=== PATIENT | female | born 1950 | race African-American/Black ===

== ENCOUNTER 2017-04-19 22:49 | Emergency (ER) | payer MEDICARE ==
[2017-04-19 23:44] LABS: Hematocrit 32.5 % (36.0-47.0); Neutrophil 68 % (42-75); Red Blood Cell (RBC) Count 3.44 mill/uL (4.20-5.40); White Blood Cell (WBC) Count 4.9 thou/uL (4.8-10.8)
--- NOTE | 2017-04-19 23:47 | RAD ---
AP VIEW OF THE CHEST: 04/19/17 INDICATION: Difficulty breathing. COMPARISON: Prior exam dated 04/12/17. FINDINGS: There is stable cardiomegaly with mild pulmonary vascular congestion. Areas of scarring and subsegme ntal atelectasis is similar appearing. No confluent air space opacity or pleural effusion is evident . No acute osseous abnormality is evident. IMPRESSION: Stable examination of the chest. There is persistent cardiomegaly with pulmonary vascular congestion . POS: [facility]
[2017-04-19 23:55] LABS: ALT (SGPT) 12 U/L (8-55); AST (SGOT) 31 U/L (5-34); Alkaline Phosphatase 82 U/L (40-150); Anion Gap 13 mmol/L (10-20); BUN (Urea Nitrogen) 43 mg/dL (9.8-20.1); Bilirubin, Total 3.1 mg/dL (0.2-1.2); Calc. Creatinine Clearance 0 mL/min (70-130); Carbon Dioxide 18 mmol/L (23-31); Chloride 105 mmol/L (98-107); Estimated GFR-MDRD 20; Magnesium 1.6 mg/dL (1.6-2.6); Protein, Total 7.1 g/dL (6.0-8.3)
[2017-04-19 23:57] LABS: Troponin I Less than 0.010 ng/mL (< 0.028)
[2017-04-20] MEDS ORDERED: Furosemide 40 MG/4 ML VIAL ONE ×2 (01:24→02:09)
== END 2017-04-20 02:18 | disposition home or self-care (01) ==
LOC: ERS 22:49
DX: I13.0 Hypertensive heart and chronic kidney disease with heart failure and stage 1 through stage 4 chronic kidney disease, or unspecified chronic kidney disease (principal); E11.22 Type 2 diabetes mellitus with diabetic chronic kidney disease; N18.9 Chronic kidney disease, unspecified; E78.5 Hyperlipidemia, unspecified; I50.9 Heart failure, unspecified; I25.2 Old myocardial infarction; Z87.891 Personal history of nicotine dependence; Z79.82 Long term (current) use of aspirin; Z79.4 Long term (current) use of insulin; Z79.899 Other long term (current) drug therapy
CPT/HCPCS: 36415; 71010; 80053; 82553; 83735; 83880; 84484; 85025; 85379; 93005; 96374; J1940

== ENCOUNTER 2017-05-14 16:58 | Emergency (ER) | payer MEDICARE ==
--- NOTE | 2017-05-14 19:17 | RAD ---
RIGHT KNEE FOUR VIEWS: 05/14/17 HISTORY: Knee pain and swelling. FINDINGS/IMPRESSION: Mild degenerative changes are present. No fracture, dislocation or bony destruction is identified. V ascular calcifications, surgical clips, and soft tissue calcifications are also noted. POS: [facility]
--- NOTE | 2017-05-14 21:25 | ULT ---
BILATERAL LOWER EXTREMITY VENOUS DOPPLER ULTRASOUND: 05/14/17 HISTORY: Bilateral lower extremity edema and pain. TECHNIQUE: Candelario scale ultrasound with color flow and spectral doppler imaging of the deep venous systems of the lower extremity is performed bilaterally. FINDINGS: Exam is limited due to patient's body habitus. There is good flow, compression, and augmentation noted in the common femoral, femoral, deep femoral , popliteal, posterior tibial and greater saphenous veins on either side. IMPRESSION: No evidence of DVT in either lower extremity. POS: [facility]
== END 2017-05-14 20:03 | disposition home or self-care (01) ==
LOC: ERS 16:58
DX: R60.0 Localized edema (principal); I11.0 Hypertensive heart disease with heart failure; I50.9 Heart failure, unspecified; N28.9 Disorder of kidney and ureter, unspecified; E11.9 Type 2 diabetes mellitus without complications; Z98.890 Other specified postprocedural states; Z87.891 Personal history of nicotine dependence; Z79.899 Other long term (current) drug therapy
CPT/HCPCS: 93970; 94760

== ENCOUNTER 2017-05-19 10:38 | Inpatient (IN) | payer MEDICARE ==
[2017-05-19 11:17] LABS: Hematocrit 32.7 % (36.0-47.0); Mean Platelet Volume 8.1 fL (7.4-10.4); Red Blood Cell (RBC) Count 3.44 mill/uL (4.20-5.40); White Blood Cell (WBC) Count 4.6 thou/uL (4.8-10.8)
[2017-05-19 11:35] LABS: ALT (SGPT) 9 U/L (8-55); AST (SGOT) 24 U/L (5-34); Alkaline Phosphatase 83 U/L (40-150); Anion Gap 12 mmol/L (10-20); BUN (Urea Nitrogen) 30 mg/dL (9.8-20.1); Bilirubin, Total 4.9 mg/dL (0.2-1.2); Calc. Creatinine Clearance 0 mL/min (70-130); Carbon Dioxide 27 mmol/L (23-31); Chloride 85 mmol/L (98-107); Estimated GFR-MDRD 28; Globulin 4.1 g/dL (2.4-3.5); Magnesium 1.6 mg/dL (1.6-2.6); Protein, Total 6.9 g/dL (6.0-8.3)
[2017-05-19 11:39] LABS: Troponin I Less than 0.010 ng/mL (< 0.028)
[2017-05-19 11:42] LABS: Neutrophil 71 % (42-75)
--- NOTE | 2017-05-19 11:46 | RAD ---
CHEST 1 VIEW: HISTORY: Dyspnea. Shortness of breath. COMPARISON: Chest 1 view dated 04/19/17. FINDINGS: Linear opacities in both lung bases. Mildly worsened from the comparison examination suggesting valery ma. No pneumothorax. Heart size is enlarged. IMPRESSION: Worsening interstitial opacities suggesting edema. POS: [facility]
[2017-05-19] MEDS ORDERED: Morphine 2 MG/ML SYRINGE ONE (12:15)
[2017-05-19] MEDS ORDERED: Ondansetron HCl/PF 4 MG/2 ML Vial ONE (12:15)
--- NOTE | 2017-05-19 12:51 | CT ---
CHEST CT NONCONTRAST: INDICATION: Dyspnea. COMPARISON: 11/02/15. FINDINGS: There is diffuse body wall edema as well as bilateral mild pleural fluid, and partially imaged ascit es compatible with a diffuse third spacing of fluid. Recommend clinical correlation in this regard. There is diffuse interstitial opacification as well as subtle areas of ground-glass opacity involv ing each lung, which favor edema in light of the concomitant findings. No pneumothorax. The region al soft tissues including vasculature and lymph nodes are limited in assessment by the noncontrast t echnique. There is extensive vascular disease and evidence of prior sternotomy and coronary artery stent placement. There is scattered osseous degenerative change. IMPRESSION: Findings most consistent with diffuse third spacing of fluid/anasarca with associated pulmonary nnamdi a. The possibility of underlying pneumonitis is not excluded. There are superimposed linear densit ies with subpleural nodularity which may be on the basis of atelectasis. Given component of nodular ity, recommend a followup CT thorax on a short-term basis subsequent to resolution of acute symptoms and completion of treatment regimen to confirm resolution of imaging findings. POS: [facility]
--- NOTE | 2017-05-19 12:59 | RAD ---
RIGHT FEMUR 2 VIEW SERIES: INDICATION: Pain. FINDINGS: The right hip joint is not reliably assessed on the basis of this exam. Otherwise, there is no acut e fracture of the right femur evident. Diffuse vascular calcifications are present. There are meta llic clips of the regional soft tissues. IMPRESSION: 1. Suboptimal visualization of right hip. Recommend dedicated right hip views for further assessme nt. 2. Otherwise, no displaced fracture of the right femur identified. POS: [facility]
--- NOTE | 2017-05-19 13:00 | RAD ---
RIGHT TIBIA FIBULA 2 VIEWS: History Pain. COMPARISON: None. FINDINGS: There are diffuse phleboliths throughout the lower extremity. No acute fracture or malalignment is appreciated. Small osteophyte formation on the iliotibial plateau. IMPRESSION: Extensive calcifications throughout the soft tissues to suggest phlebolith formation. POS: [facility]
[2017-05-19] MEDS ORDERED: Furosemide 20 MG/2 ML VIAL ONE (13:09)
[2017-05-19] MEDS ORDERED: Sodium Chloride 0.65% Nasal 44 ML BOT EA NARE PRN (14:59)
[2017-05-19] MEDS ORDERED: Eucerin (Mineral Oil/Petrolatum,White) 30 gm Jar TOP PRN (14:59)
[2017-05-19] MEDS ORDERED: Ondansetron HCl/PF 4 MG/2 ML Vial IVP PRN (14:59)
[2017-05-19] MEDS ORDERED: Senokot 8.6 MG TAB PO PRN (14:59)
[2017-05-19] MEDS ORDERED: Mag-Al 1200 mg/1200 mg/30 ML UDCUP PO PRN (14:59)
[2017-05-19] MEDS ORDERED: Acetaminophen 325 MG TAB PO PRN (14:59)
[2017-05-19] MEDS ORDERED: Dextrose 50% Abboject 50 ML SYRINGE SLOW IVP PRN (14:59)
[2017-05-19] MEDS ORDERED: Milk Of Magnesia 30 ML UDCUP PO PRN (14:59)
[2017-05-19] MEDS ORDERED: HumaLOG 300 UNITS/3 ML VIAL SC PRN (14:59)
[2017-05-19] MEDS ORDERED: Diabetic Tussin 200 MG/10 ML UDCUP PO PRN (14:59)
[2017-05-19] MEDS ORDERED: Artificial Tears 18 DROP/0.9 ML EA EYE PRN (14:59)
[2017-05-19] MEDS ORDERED: Loperamide HCl 2 MG CAP PO PRN (14:59)
[2017-05-19] MEDS ORDERED: Chloraseptic Spray 180 ml Bottle PO PRN (14:59)
[2017-05-19] MEDS ORDERED: hydrALAZINE 20 MG/ML VIAL SLOW IVP PRN (14:59)
[2017-05-19] MEDS ORDERED: Ondansetron ODT 4 MG TAB PO PRN (14:59)
[2017-05-19] MEDS ORDERED: Dextrose 5% in Water 1,000 ML IV PRN (14:59)
[2017-05-19] MEDS ORDERED: Loratadine 10 MG TAB PO PRN (14:59)
--- NOTE | 2017-05-19 14:59 | HP ---
PRIMARY CARE PHYSICIAN: Jessika Clay M.D. REASON FOR ADMISSION: Acute on chronic systolic and diastolic congestive heart failure exacerbation . HISTORY OF PRESENT ILLNESS: A 67-year-old -[place] female with a history of chronic systoli c heart failure. Based on last echocardiography in 09/2016, her EF is 15%-20% along with moderate t o severe tricuspid regurgitation and pulmonary hypertension as well as other medical issues includin g chronic kidney disease stage 4, diabetes type 2, dyslipidemia, who was brought to emergency room f or increasing edema and shortness of breath. This patient was recently hospitalized in our hospital in 04/11/2017 and she was discharged to [facility] on 04/15/2017. During that admission, Cardiology and Nephrology was following. This patient has renal insufficiency as well as congestive heart failure. During that admission, zee call did not want to go for dialysis and this time also she does not want to go for dialysis or not . She has severe cardiomyopathy and increasing lower extremity edema. At group home, she stayed for a week or two and after that patient was continued to refuse for dean lysis and her edema was getting worse. At that time, Dr. Rios recommended hospice and patient accep [facility] and since then patient was on hospice care. Patient's daughter, who is main caregiver for her. She is overwhelmed taking care of the patient. The patient's daughter cannot help her out because she cannot lift her because of patient's morbid o besity and she reports that hospice team was only coming once or twice a week and they were not help ing significantly. Patient was feeling more and more weak, more and more fluid overload status and that is why daughter called paramedics and patient came to emergency room for evaluation. Patient did not have any fever or urinary tract infection symptoms. She mostly spends time in recli ner or bed. She is only able to walk few steps and that is very slowly. She is hurting all over he r body with movement. Patient has not seen any doctor since her discharge from group home. Patient's daughter is present at bedside who provided most of the history and she also want to shawn nue DNR status while in hospital. She is interested in placing her mother in the hospital for aggre ssive diuresis and subsequently she wanted to go back to hospice care under placement so she can get time-off. REVIEW OF SYSTEMS: The following complete review of systems was negative, unless otherwise mentione d in the HPI or below: Constitutional: Weight loss or gain, ability to conduct usual activities. Skin: Rash, itching. Eyes: Double vision, pain. ENT/Mouth: Nose bleeding, neck stiffness, pain, tenderness. Cardiovascular: Palpitations, dyspnea on exertion, orthopnea. Respiratory: Shortness of breath, wheezing, cough, hemoptysis, fever or night sweats. Gastrointestinal: Poor appetite, abdominal pain, heartburn, nausea, vomiting, constipation, or diar marcus. Genitourinary: Urgency, frequency, dysuria, nocturia. Musculoskeletal: Pain, swelling. Neurologic/Psychiatric: Anxiety, depression. Allergy/Immunologic: Skin rash, bleeding tendency. Please see my HPI for pertinent positive and negative. All other review of systems reviewed and neg ative except as mentioned in the HPI. PAST MEDICAL HISTORY: Chronic systolic and diastolic heart failure with EF 15%-20%, pulmonary hyper tension, chronic kidney disease stage 3-4, history of CVA, history of chronic anticoagulation with X arelto, but now no longer on Xarelto, hypertension, dyslipidemia, history of [place], chronic lymphedema with superficial ulceration requiring wound care, diabetes type 2, morbid obesity, and gastroesophag eal reflux disease. PAST SURGICAL HISTORY: CABG x5 in 1997 and left knee surgery. PAST PSYCHIATRIC HISTORY: Reviewed and negative. FAMILY HISTORY: Positive for coronary artery disease among several family members. ALLERGIES: PENICILLIN. SOCIAL HISTORY: Patient currently lives at home with home hospice. Patient's daughter is caregiver . No history of tobacco, alcohol or illicit drug abuse. She quit smoking more than 10 years ago. Currently, the patient is mostly bedbound or wheelchair bound status. CURRENT HOME MEDICATIONS: At this point, daughter did not bring all her medications, but based on o ur previous hospitalization, patient is on Coreg 12.5 mg twice daily, Lasix 20 mg daily, tramadol 50 mg as needed, hydralazine 10 mg daily. Complete medication list is not done because they do not kn ow the name of medication. EMERGENCY ROOM COURSE: Patient is given Lasix 20 mg, morphine 2 mg, and Zofran 4 mg. PHYSICAL EXAMINATION: VITAL SIGNS: On arrival, blood pressure 103/59, pulse 66, respiratory rate 18, temperature 97.7, sa turation 94% on room air, and weight 122.4 kilograms. GENERAL: Patient is currently alert, awake, chronically ill, no acute distress. HEAD: Normocephalic, atraumatic. EYES: Pupils round and reactive to light. Extraocular muscle intact. ENT: Oropharynx within normal limits. Moist mucous membranes. No oral lesions. No pharyngeal yvonne thema, no exudate. NECK: Elevated JVD, no thyromegaly, no carotid bruits. No meningeal signs of irritation. LUNGS: Coarse breath sounds. Air entry reduced basally. CARDIAC: S1 and S2 regular. No murmur elicited, though morbid obesity limiting examination. ABDOMEN: Morbid obesity limiting examination. No peritoneal sign, no guarding, no rigidity, no yudelka ound. Hepatojugular reflux present. BACK: Examination unremarkable, no CVA tenderness. EXTREMITIES: Upper extremity passive movements of all joints are normal. Lower extremity, patient does have venous ulcer on the left lower extremity. Patient does have bilateral +3 pitting edema. Good distal pulsation. NEUROLOGIC: Grossly nonfocal examination. Patient is moving all four limbs. Speech normal. SKIN: No skin rash. HEMATOLOGICAL SYSTEM: No lymphadenopathy. PSYCHIATRIC: Flat affect. IMAGING AND SIGNIFICANT LABORATORY DATA: 1. CT chest showing diffuse third spacing of fluid, anasarca associated with pulmonary edema. Femu r x-ray negative for any fracture or dislocation. 2. Tibia and fibula x-ray negative for any fracture or dislocation. 3. CBC: WBC 4.6, hemoglobin 10.4, platelet 122. 4. BMP: Sodium 120, potassium 4.0, chloride 85, carbon dioxide 27, anion gap 12, BUN 30, creatinin e 2.13, glucose 144, calcium 9.0, and magnesium 1.6. 5. LFT: AST 24, ALT 9, alkaline phosphatase 83, albumin 2.8, CK-MB 2.4, troponin I less than 0.010 . 6. EKG showing normal sinus rhythm. shelter monitor showing sinus rhythm. ASSESSMENT AND PLAN/IMPRESSION: 1. Acute on chronic systolic and diastolic congestive heart failure. 2. Anasarca associated with congestive heart failure. 3. Chronic kidney disease stage 3 and 4. 4. Cardiorenal syndrome. 5. Severe ischemic cardiomyopathy with ejection fraction 15%-20%. 6. Hypernatremia due to hypervolemia. 7. Pancytopenia. 8. Morbid obesity. 9. Diabetes type 2. 10. Gastroesophageal reflux disease. 11. Dyslipidemia. 12. Chronic lymphedema with ulcer on left lower extremity. 13. Hospice patient. PLAN: 1. Full admission to medical floor. We will continue aggressive diuresis with Lasix 60 mg twice da pretty and Zaroxolyn 5 mg everyday. Daily weight and input-output chart. Daily monitoring of basic me tabolic panel, magnesium and replace electrolytes as needed basis. Patient is no longer wanted to g o for dialysis or out so no need of consulting Nephrology. We will also consult palliative care, ca se manager resource and wound care team while in hospital. 2. Code status will be DNR as per patient as well as patient's daughter request. The patient's haven ghter is surrogate decision maker. Protonix for GI prophylaxis. Heparin for DVT prophylaxis. At t his point because of low blood pressure, we will hold on other medication including beta ivett. T he patient will not be on BEV inhibitor or ARB because of renal failure and we will treat symptomati tammi while in hospital. 3. Plan of care extensively discussed with the patient's daughter at bedside in the emergency room.
[2017-05-19] MEDS ORDERED: Furosemide 100 MG/10 ML VIAL SLOW IVP SCH (15:15)
[2017-05-19] MEDS ORDERED: Metolazone 5 MG TAB PO SCH (15:15)
[2017-05-19 15:30] VITALS: BMI 42.1
[2017-05-19] MEDS ORDERED: Temazepam 15 MG CAP PO SCH (20:15)
[2017-05-19] MEDS: Heparin 5,000 UNITS/ML VIAL SC SCH (20:55)
[2017-05-20] MEDS: Morphine 2 MG/ML SYRINGE SLOW IVP PRN (03:53)
[2017-05-20 05:34] LABS: Anion Gap 17 mmol/L (10-20); BUN (Urea Nitrogen) 28 mg/dL (9.8-20.1); BUN/Creatinine Ratio 13.73; Calc. Creatinine Clearance 52 mL/min (70-130); Calcium 8.8 mg/dL (7.8-10.44); Carbon Dioxide 17 mmol/L (23-31); Chloride 88 mmol/L (98-107); Estimated GFR-MDRD 29; Magnesium 1.9 mg/dL (1.6-2.6); Phosphorus 3.8 mg/dL (2.3-4.7)
[2017-05-20 05:36] LABS: Hematocrit 32.4 % (36.0-47.0); Mean Platelet Volume 8.3 fL (7.4-10.4); Neutrophil 66 % (42-75); Red Blood Cell (RBC) Count 3.28 mill/uL (4.20-5.40)
[2017-05-20] MEDS: Furosemide 100 MG/10 ML VIAL SLOW IVP SCH ×2 (05:44→14:24)
[2017-05-20] MEDS: Sodium Chloride 0.9% 1,000 ML IV SCH (06:30)
[2017-05-20] MEDS: Heparin 5,000 UNITS/ML VIAL SC SCH ×2 (08:44→21:06)
[2017-05-20] MEDS: Metolazone 5 MG TAB PO SCH (08:44)
[2017-05-20 10:35] LABS: Anion Gap 14 mmol/L (10-20); BUN (Urea Nitrogen) 30 mg/dL (9.8-20.1); Calc. Creatinine Clearance 50 mL/min (70-130); Calcium 8.8 mg/dL (7.8-10.44); Carbon Dioxide 24 mmol/L (23-31); Chloride 86 mmol/L (98-107); Estimated GFR-MDRD 28
--- NOTE | 2017-05-20 13:19 | PDOC.PN ---
- Subjective Encounter Start Date: 05/20/17 Encounter Start Time: 11:00 Subjective: awake, not in distress -: knows she is in [facility] - Objective Resuscitation Status: Resuscitation Status FULL:Full Resuscitation MAR Reviewed: Yes Vital Signs & Weight: Vital Signs (12 hours) Temp Pulse Resp BP Pulse Ox 05/20/17 08:00 97.6 F 67 18 125/77 97 05/20/17 03:58 97.5 F L 64 18 96/65 96 Weight Admit Weight 268 lb 15.423 oz Weight 268 lb 15.423 oz I&O: 05/19/17 05/20/17 05/21/17 06:59 06:59 06:59 Intake Total 890 Output Total 1400 Balance -510 Result Diagrams: 05/20/17 03:44 05/20/17 10:00 Additional Labs: Accuchecks 05/20/17 05/19/17 05/19/17 11:17 20:05 16:22 POC Glucose 138 H 112 H 128 H Phys Exam - Physical Examination anasarca HEENT: PERRLA, moist MMs Neck: no JVD, supple Respiratory: no wheezing rales+ Cardiovascular: RRR, no significant murmur Gastrointestinal: soft, positive bowel sounds abd wall edema+++ Musculoskeletal: pulses present, edema present Neurological: non-focal, moves all 4 limbs Dx/Plan (1) Acute exacerbation of CHF (congestive heart failure) Code(s): I50.9 - HEART FAILURE, UNSPECIFIED Status: Acute Qualifiers: Congestive heart failure type: systolic Qualified Code(s): I50.23 - Acute on chronic systolic (congestive) heart failure Comment: ef of 15% (2) CKD (chronic kidney disease) stage 4, GFR 15-29 ml/min Code(s): N18.4 - CHRONIC KIDNEY DISEASE, STAGE 4 (SEVERE) Status: Chronic (3) CAD (coronary artery disease) Code(s): I25.10 - ATHSCL HEART DISEASE OF [place] CORONARY ARTERY W/O ANG PCTRS Status: Chronic Qualifiers: Coronary Disease-Associated Artery/Lesion type: [place] artery [place] vs. transplanted heart: [place] heart Associated angina: without angina Qualified Code(s): I25.10 - Atherosclerotic heart disease of [place] coronary artery without angina pectoris (4) DM2 (diabetes mellitus, type 2) Status: Chronic Qualifiers: Diabetes mellitus complication status: with kidney complications Diabetes mellitus complication detail: with chronic kidney disease Diabetes mellitus alf insulin use: with alf use Chronic kidney disease stage: stage 4 (severe) Qualified Code(s): E11.22 - Type 2 diabetes mellitus with diabetic chronic kidney disease; N18.4 - Chronic kidney disease, stage 4 (severe); N18.4 - Chronic kidney disease, stage 4 (severe); N18.4 - Chronic kidney disease, stage 4 (severe); N18.4 - Chronic kidney disease, stage 4 (severe); Z79.4 - [place] (current) use of insulin; Z79.4 - [place] (current) use of insulin; Z79.4 - [place] (current) use of insulin; Z79.4 - [place] (current) use of insulin (5) HTN (hypertension) Code(s): I10 - ESSENTIAL (PRIMARY) HYPERTENSION Status: Chronic Qualifiers: Hypertension type: essential hypertension (6) Hyperlipidemia Code(s): E78.5 - HYPERLIPIDEMIA, UNSPECIFIED Status: Chronic Qualifiers: Hyperlipidemia type: unspecified (7) Morbid obesity with BMI of 40.0-44.9, adult Code(s): E66.01 - MORBID (SEVERE) OBESITY DUE TO EXCESS CALORIES; Z68.41 - BODY MASS INDEX (BMI) 40.0-44.9, ADULT Status: Chronic (8) Normocytic anemia Code(s): D64.9 - ANEMIA, UNSPECIFIED Status: Chronic (9) Physical deconditioning Code(s): R53.81 - OTHER MALAISE Status: Chronic - Plan is on lasix 60mg q12h -: gentle diuresis -: poor prognosis, severe deconditioning -: for snf with hospice -: has siadh with sod of 120, creatinine of 2.1, alb is 2.4 * . Review of Systems - Medications/Allergies Allergies/Adverse Reactions: Allergies Allergy/AdvReac Type Severity Reaction Status Date / Time Penicillins Allergy Unknown Rash Verified 05/19/17 15:35 lactose Allergy Verified 05/19/17 15:35 Medications: Current Medications Acetaminophen (Tylenol) 650 mg PO Q4H PRN PRN Reason: Headache/Fever or Pain Last Admin: 05/20/17 03:23 Dose: 650 mg Al Hydroxide/Mg Hydroxide (Maalox) 30 ml PO Q6H PRN PRN Reason: Heartburn or Indigestion Albuterol/Ipratropium (Duoneb) 3 ml NEB [id number] PRN PRN Reason: SOB &/or Wheezing Artificial Tears (Tears Naturale) 0 drop EA EYE PRN PRN PRN Reason: Dry Eyes Dextrose/Water (Dextrose 50%) 25 gm SLOW IVP PRN PRN PRN Reason: Hypoglycemia Furosemide (Lasix) 60 mg SLOW IVP 0600,1400 [facility] Last Admin: 05/20/17 05:44 Dose: Not Given Glucagon (Glucagon) 1 mg IM PRN PRN PRN Reason: Hypoglycemia Guaifenesin (Robitussin Sf) 200 mg PO Q4H PRN PRN Reason: Cough Heparin Sodium (Porcine) (Heparin) 5,000 units SC BID [facility] Last Admin: 05/20/17 08:44 Dose: Not Given Hydralazine HCl (Apresoline) 10 mg SLOW IVP Q4H PRN PRN Reason: Systolic BP > 180 Dextrose/Water (D5w) 1,000 mls @ 0 mls/hr IV .Q0M PRN; As Directed PRN Reason: Hypoglycemia Sodium Chloride (Normal Saline 0.9%) 1,000 mls @ 50 mls/hr IV .Q20H [facility] Last Admin: 05/20/17 06:30 Dose: 1,000 mls Insulin Human Lispro (Humalog) 0 units SC .MODERATE SLIDING SC PRN PRN Reason: Moderate Correctional Scale Insulin Human Lispro (Humalog) 0 units SC .BEDTIME SLIDING SC PRN PRN Reason: Bedtime Correctional Scale Loperamide HCl (Imodium) 2 mg PO PRN PRN PRN Reason: Diarrhea/Loose Stools Loratadine (Claritin) 10 mg PO DAILYPRN PRN PRN Reason: Sinus Symptoms Magnesium Hydroxide (Milk Of Magnesium) 30 ml PO DAILYPRN PRN PRN Reason: Constipation Metolazone (Zaroxolyn) 5 mg PO 0830 [facility] Last Admin: 05/20/17 08:44 Dose: 5 mg Mineral Oil/White Petrolatum (Eucerin Cream) 0 gm TOP BIDPRN PRN PRN Reason: Dry Skin Morphine Sulfate (Morphine Sulfate) 2 mg SLOW IVP Q3H PRN PRN Reason: Pain Last Admin: 05/20/17 03:53 Dose: 2 mg Ondansetron HCl (Zofran Odt) 4 mg PO Q6H PRN PRN Reason: Nausea/Vomiting Ondansetron HCl (Zofran) 4 mg IVP Q6H PRN PRN Reason: Nausea/Vomiting Pantoprazole Sodium (Protonix) 40 mg PO DAILY ASAD Last Admin: 05/20/17 08:44 Dose: 40 mg Phenol (Chloraseptic [place] 180 Ml Bot) 0 ml PO PRN PRN PRN Reason: Sore Throat Senna (Senokot) 2 tab PO HSPRN PRN PRN Reason: Constipation Sodium Chloride ([place] Nasal [place] 0.65%) 0 ml EA NARE QIDPRN PRN PRN Reason: Nasal Congestion
[2017-05-21] MEDS: Sodium Chloride 0.9% 1,000 ML IV SCH ×2 (03:24→21:25)
[2017-05-21] MEDS: Furosemide 100 MG/10 ML VIAL SLOW IVP SCH ×2 (06:46→14:10)
[2017-05-21 07:12] LABS: Hematocrit 31.7 % (36.0-47.0); Mean Platelet Volume 8.7 fL (7.4-10.4); White Blood Cell (WBC) Count 3.8 thou/uL (4.8-10.8)
[2017-05-21 07:29] LABS: ALT (SGPT) 10 U/L (8-55); AST (SGOT) 25 U/L (5-34); Alkaline Phosphatase 82 U/L (40-150); Anion Gap 14 mmol/L (10-20); BUN (Urea Nitrogen) 32 mg/dL (9.8-20.1); Bilirubin, Total 5.7 mg/dL (0.2-1.2); Calc. Creatinine Clearance 50 mL/min (70-130); Calcium 8.9 mg/dL (7.8-10.44); Carbon Dioxide 23 mmol/L (23-31); Chloride 87 mmol/L (98-107); Estimated GFR-MDRD 28; Globulin 3.9 g/dL (2.4-3.5); Protein, Total 6.6 g/dL (6.0-8.3)
[2017-05-21 08:29] LABS: Acanthocytes SLIGHT = 1-5 cells (100X) (None Seen); Band 1 % (5-11); Neutrophil 71 % (42-75); Polychromasia MODERATE = 3-4 cells (100X) (0-2/hpf); Reactive Lymphocytes 2 % (0-10)
[2017-05-21] MEDS: Metolazone 5 MG TAB PO SCH (08:35)
[2017-05-21] MEDS: Heparin 5,000 UNITS/ML VIAL SC SCH ×2 (08:35→21:33)
--- NOTE | 2017-05-21 09:20 | PDOC.PN ---
- Subjective Encounter Start Date: 05/21/17 Encounter Start Time: 07:20 - Objective Resuscitation Status: Resuscitation Status DNR:Do Not Resuscitate MAR Reviewed: Yes Vital Signs & Weight: Vital Signs (12 hours) Temp Pulse Resp BP Pulse Ox 05/21/17 05:00 97.5 F L 61 18 107/73 95 Weight Admit Weight 268 lb 15.423 oz Weight 268 lb 15.423 oz I&O: 05/20/17 05/21/17 05/22/17 06:59 06:59 06:59 Intake Total 890 Output Total 1400 1350 Balance -510 -1350 Result Diagrams: 05/21/17 06:37 05/21/17 06:37 Additional Labs: Accuchecks 05/21/17 05/20/17 05/20/17 04:29 20:31 16:56 POC Glucose 171 H 116 H 108 05/20/17 11:17 POC Glucose 138 H Phys Exam - Physical Examination HEENT: sclera anicteric dry mucosa Neck: no JVD, supple Respiratory: no wheezing rhonchi+ Cardiovascular: RRR, no significant murmur Gastrointestinal: soft, no distention, positive bowel sounds abd wall edema Musculoskeletal: pulses present, edema present Neurological: non-focal, moves all 4 limbs Dx/Plan (1) Acute exacerbation of CHF (congestive heart failure) Code(s): I50.9 - HEART FAILURE, UNSPECIFIED Status: Acute Qualifiers: Congestive heart failure type: systolic Qualified Code(s): I50.23 - Acute on chronic systolic (congestive) heart failure Comment: ef of 15% (2) CKD (chronic kidney disease) stage 4, GFR 15-29 ml/min Code(s): N18.4 - CHRONIC KIDNEY DISEASE, STAGE 4 (SEVERE) Status: Chronic (3) CAD (coronary artery disease) Code(s): I25.10 - ATHSCL HEART DISEASE OF [place] CORONARY ARTERY W/O ANG PCTRS Status: Chronic Qualifiers: Coronary Disease-Associated Artery/Lesion type: [place] artery [place] vs. transplanted heart: [place] heart Associated angina: without angina Qualified Code(s): I25.10 - Atherosclerotic heart disease of [place] coronary artery without angina pectoris (4) DM2 (diabetes mellitus, type 2) Status: Chronic Qualifiers: Diabetes mellitus complication status: with kidney complications Diabetes mellitus complication detail: with chronic kidney disease Diabetes mellitus marine oil terminal superintendent insulin use: with marine oil terminal superintendent use Chronic kidney disease stage: stage 4 (severe) Qualified Code(s): E11.22 - Type 2 diabetes mellitus with diabetic chronic kidney disease; N18.4 - Chronic kidney disease, stage 4 (severe); N18.4 - Chronic kidney disease, stage 4 (severe); N18.4 - Chronic kidney disease, stage 4 (severe); N18.4 - Chronic kidney disease, stage 4 (severe); Z79.4 - watermelon inspector (current) use of insulin; Z79.4 - half-way (current) use of insulin; Z79.4 - watermelon inspector (current) use of insulin; Z79.4 - watermelon inspector (current) use of insulin (5) HTN (hypertension) Code(s): I10 - ESSENTIAL (PRIMARY) HYPERTENSION Status: Chronic Qualifiers: Hypertension type: essential hypertension (6) Hyperlipidemia Code(s): E78.5 - HYPERLIPIDEMIA, UNSPECIFIED Status: Chronic Qualifiers: Hyperlipidemia type: unspecified (7) Morbid obesity with BMI of 40.0-44.9, adult Code(s): E66.01 - MORBID (SEVERE) OBESITY DUE TO EXCESS CALORIES; Z68.41 - BODY MASS INDEX (BMI) 40.0-44.9, ADULT Status: Chronic (8) Normocytic anemia Code(s): D64.9 - ANEMIA, UNSPECIFIED Status: Chronic (9) Physical deconditioning Code(s): R53.81 - OTHER MALAISE Status: Chronic - Plan is on lasix 60mg iv q12h -: poor prognosis -: poor functional status -: will need snf with hospice * . Review of Systems - Medications/Allergies Allergies/Adverse Reactions: Allergies Allergy/AdvReac Type Severity Reaction Status Date / Time Penicillins Allergy Unknown Rash Verified 05/19/17 15:35 lactose Allergy Verified 05/19/17 15:35 Medications: Current Medications Acetaminophen (Tylenol) 650 mg PO Q4H PRN PRN Reason: Headache/Fever or Pain Last Admin: 05/20/17 03:23 Dose: 650 mg Al Hydroxide/Mg Hydroxide (Maalox) 30 ml PO Q6H PRN PRN Reason: Heartburn or Indigestion Albuterol/Ipratropium (Duoneb) 3 ml NEB [id number] PRN PRN Reason: SOB &/or Wheezing Artificial Tears (Tears Naturale) 0 drop EA EYE PRN PRN PRN Reason: Dry Eyes Dextrose/Water (Dextrose 50%) 25 gm SLOW IVP PRN PRN PRN Reason: Hypoglycemia Furosemide (Lasix) 60 mg SLOW IVP 0600,1400 [facility] Last Admin: 05/21/17 06:46 Dose: 60 mg Glucagon (Glucagon) 1 mg IM PRN PRN PRN Reason: Hypoglycemia Guaifenesin (Robitussin Sf) 200 mg PO Q4H PRN PRN Reason: Cough Heparin Sodium (Porcine) (Heparin) 5,000 units SC BID [facility] Last Admin: 05/21/17 08:35 Dose: Not Given Hydralazine HCl (Apresoline) 10 mg SLOW IVP Q4H PRN PRN Reason: Systolic BP > 180 Dextrose/Water (D5w) 1,000 mls @ 0 mls/hr IV .Q0M PRN; As Directed PRN Reason: Hypoglycemia Sodium Chloride (Normal Saline 0.9%) 1,000 mls @ 50 mls/hr IV .Q20H [facility] Last Admin: 05/21/17 03:24 Dose: 1,000 mls Insulin Human Lispro (Humalog) 0 units SC .MODERATE SLIDING SC PRN PRN Reason: Moderate Correctional Scale Insulin Human Lispro (Humalog) 0 units SC .BEDTIME SLIDING SC PRN PRN Reason: Bedtime Correctional Scale Loperamide HCl (Imodium) 2 mg PO PRN PRN PRN Reason: Diarrhea/Loose Stools Loratadine (Claritin) 10 mg PO DAILYPRN PRN PRN Reason: Sinus Symptoms Magnesium Hydroxide (Milk Of Magnesium) 30 ml PO DAILYPRN PRN PRN Reason: Constipation Metolazone (Zaroxolyn) 5 mg PO 0830 [facility] Last Admin: 05/21/17 08:35 Dose: 5 mg Mineral Oil/White Petrolatum (Eucerin Cream) 0 gm TOP BIDPRN PRN PRN Reason: Dry Skin Morphine Sulfate (Morphine Sulfate) 2 mg SLOW IVP Q3H PRN PRN Reason: Pain Last Admin: 05/20/17 03:53 Dose: 2 mg Ondansetron HCl (Zofran Odt) 4 mg PO Q6H PRN PRN Reason: Nausea/Vomiting Ondansetron HCl (Zofran) 4 mg IVP Q6H PRN PRN Reason: Nausea/Vomiting Pantoprazole Sodium (Protonix) 40 mg PO DAILY ASAD Last Admin: 05/21/17 08:35 Dose: 40 mg Phenol (Chloraseptic [place] 180 Ml Bot) 0 ml PO PRN PRN PRN Reason: Sore Throat Senna (Senokot) 2 tab PO HSPRN PRN PRN Reason: Constipation Sodium Chloride ([place] Nasal [place] 0.65%) 0 ml EA NARE QIDPRN PRN PRN Reason: Nasal Congestion
[2017-05-21] MEDS: HumaLOG 300 UNITS/3 ML VIAL SC PRN (12:17)
[2017-05-21] MEDS: Morphine 2 MG/ML SYRINGE SLOW IVP PRN (13:14)
[2017-05-21] MEDS ORDERED: Hydrocortisone 1% Cream 1.5 GM Packet TOP PRN (14:12)
[2017-05-21] MEDS ORDERED: Triple Antibiotic Oint 1 GM Packet TOP PRN (15:25)
[2017-05-21] MEDS: hydrOXYzine 25 MG TAB PO PRN (23:34)
[2017-05-22 05:58] LABS: Hematocrit 32.4 % (36.0-47.0); Mean Platelet Volume 9.9 fL (7.4-10.4); Neutrophil 65 % (42-75); Red Blood Cell (RBC) Count 3.46 mill/uL (4.20-5.40); White Blood Cell (WBC) Count 3.9 thou/uL (4.8-10.8)
[2017-05-22 06:07] LABS: Anion Gap 14 mmol/L (10-20); BUN (Urea Nitrogen) 33 mg/dL (9.8-20.1); Calc. Creatinine Clearance 52 mL/min (70-130); Carbon Dioxide 22 mmol/L (23-31); Estimated GFR-MDRD 29
[2017-05-22] MEDS: Furosemide 100 MG/10 ML VIAL SLOW IVP SCH ×2 (06:14→14:57)
[2017-05-22 06:15] LABS: Chloride 86 mmol/L (98-107)
[2017-05-22] MEDS: Morphine 2 MG/ML SYRINGE SLOW IVP PRN ×2 (06:15→22:05)
[2017-05-22] MEDS: hydrOXYzine 25 MG TAB PO PRN ×3 (06:16→22:05)
[2017-05-22] MEDS: Heparin 5,000 UNITS/ML VIAL SC SCH ×2 (08:23→22:05)
[2017-05-22] MEDS: Metolazone 5 MG TAB PO SCH (08:23)
[2017-05-22] MEDS: Hydrocortisone 1% Cream 30 GM TUBE TOP PRN (10:23)
[2017-05-22] MEDS: HumaLOG 300 UNITS/3 ML VIAL SC PRN (12:27)
--- NOTE | 2017-05-22 14:25 | PDOC.PN ---
- Subjective Encounter Start Date: 05/22/17 Encounter Start Time: 07:45 -: old records requested/rev Patient seen and examined. No new complaints. No overnight events - Objective Resuscitation Status: Resuscitation Status DNR:Do Not Resuscitate MAR Reviewed: Yes Vital Signs & Weight: Vital Signs (12 hours) Temp Pulse Resp BP Pulse Ox 05/22/17 08:21 97.5 F L 64 20 113/70 93 L 05/22/17 08:00 97.5 F L 64 20 Weight Admit Weight 268 lb 15.423 oz Weight 268 lb 15.423 oz I&O: 05/21/17 05/22/17 05/23/17 06:59 06:59 06:59 Intake Total 1050 Output Total 2571 774 5222 Balance -1350 -450 0 Result Diagrams: 05/22/17 05:17 05/22/17 05:17 Additional Labs: Accuchecks 05/22/17 05/22/17 05/21/17 11:01 04:59 20:55 POC Glucose 155 H 175 H 125 H 05/21/17 17:20 POC Glucose 158 H Phys Exam - Physical Examination Constitutional: NAD HEENT: PERRLA, moist MMs, sclera anicteric Neck: no JVD, supple Respiratory: no wheezing, no rales, no rhonchi Cardiovascular: RRR, no significant murmur, no rub Gastrointestinal: soft, non-tender, no distention, positive bowel sounds Musculoskeletal: pulses present, edema present Neurological: non-focal, normal sensation Lymphatic: no nodes Psychiatric: normal affect Skin: no rash, normal turgor Dx/Plan (1) Acute exacerbation of CHF (congestive heart failure) Code(s): I50.9 - HEART FAILURE, UNSPECIFIED Status: Acute Qualifiers: Congestive heart failure type: systolic Qualified Code(s): I50.23 - Acute on chronic systolic (congestive) heart failure Comment: ef of 15% (2) CKD (chronic kidney disease) stage 4, GFR 15-29 ml/min Code(s): N18.4 - CHRONIC KIDNEY DISEASE, STAGE 4 (SEVERE) Status: Chronic (3) CAD (coronary artery disease) Code(s): I25.10 - ATHSCL HEART DISEASE OF [place] CORONARY ARTERY W/O ANG PCTRS Status: Chronic Qualifiers: Coronary Disease-Associated Artery/Lesion type: [place] artery [place] vs. transplanted heart: [place] heart Associated angina: without angina Qualified Code(s): I25.10 - Atherosclerotic heart disease of [place] coronary artery without angina pectoris (4) DM2 (diabetes mellitus, type 2) Status: Chronic Qualifiers: Diabetes mellitus complication status: with kidney complications Diabetes mellitus complication detail: with chronic kidney disease Diabetes mellitus senior living insulin use: with senior living use Chronic kidney disease stage: stage 4 (severe) Qualified Code(s): E11.22 - Type 2 diabetes mellitus with diabetic chronic kidney disease; N18.4 - Chronic kidney disease, stage 4 (severe); N18.4 - Chronic kidney disease, stage 4 (severe); N18.4 - Chronic kidney disease, stage 4 (severe); N18.4 - Chronic kidney disease, stage 4 (severe); Z79.4 - long term care pharmacist (current) use of insulin; Z79.4 - long term care pharmacist (current) use of insulin; Z79.4 - [facility] (current) use of insulin; Z79.4 - long term care pharmacist (current) use of insulin (5) HTN (hypertension) Code(s): I10 - ESSENTIAL (PRIMARY) HYPERTENSION Status: Chronic Qualifiers: Hypertension type: essential hypertension (6) Hyperlipidemia Code(s): E78.5 - HYPERLIPIDEMIA, UNSPECIFIED Status: Chronic Qualifiers: Hyperlipidemia type: unspecified (7) Morbid obesity with BMI of 40.0-44.9, adult Code(s): E66.01 - MORBID (SEVERE) OBESITY DUE TO EXCESS CALORIES; Z68.41 - BODY MASS INDEX (BMI) 40.0-44.9, ADULT Status: Chronic (8) Normocytic anemia Code(s): D64.9 - ANEMIA, UNSPECIFIED Status: Chronic (9) Hyponatremia Code(s): E87.1 - HYPO-OSMOLALITY AND HYPONATREMIA Status: Acute (10) Physical deconditioning Code(s): R53.81 - OTHER MALAISE Status: Chronic - Plan cont current plan of care, plan discussed w/ family, PT/OT, social secretary * DC IVF * start PT/OT as per family request * discussed with daughter * medication reviewed as below * symptomatic treatment * continue diuresis * eventual placement to NH * palliative care following * prognosis is guarded. Review of Systems - Review of Systems ENT: negative: Ear Pain, Ear Discharge, Nose Pain, Nose Discharge, Nose Congestion, Mouth Pain, Mouth Swelling, Throat Pain, Throat Swelling, Other Respiratory: negative: Cough, Dry, Shortness of Breath, Hemoptysis, SOB with Excertion, Pleuritic Pain, Sputum, Wheezing Cardiovascular: Edema. negative: Chest Pain, Palpitations, Orthopnea, Paroxysmal Noc. Dyspnea, Light Headedness, Other Gastrointestinal: negative: Nausea, Vomiting, Abdominal Pain, Diarrhea, Constipation, Melena, Hematochezia, Other Genitourinary: negative: Dysuria, Frequency, Incontinence, Hematuria, Retention , Other Musculoskeletal: negative: Neck Pain, Shoulder Pain, Arm Pain, Back Pain, Hand Pain, Leg Pain, Foot Pain, Other - Medications/Allergies Allergies/Adverse Reactions: Allergies Allergy/AdvReac Type Severity Reaction Status Date / Time Penicillins Allergy Unknown Rash Verified 05/19/17 15:35 lactose Allergy Verified 05/19/17 15:35 Medications: Current Medications Acetaminophen (Tylenol) 650 mg PO Q4H PRN PRN Reason: Headache/Fever or Pain Last Admin: 05/20/17 03:23 Dose: 650 mg Al Hydroxide/Mg Hydroxide (Maalox) 30 ml PO Q6H PRN PRN Reason: Heartburn or Indigestion Albuterol/Ipratropium (Duoneb) 3 ml NEB [id number] PRN PRN Reason: SOB &/or Wheezing Artificial Tears (Tears Naturale) 0 drop EA EYE PRN PRN PRN Reason: Dry Eyes Dextrose/Water (Dextrose 50%) 25 gm SLOW IVP PRN PRN PRN Reason: Hypoglycemia Furosemide (Lasix) 60 mg SLOW IVP 0600,1400 [facility] Last Admin: 05/22/17 06:14 Dose: 60 mg Glucagon (Glucagon) 1 mg IM PRN PRN PRN Reason: Hypoglycemia Guaifenesin (Robitussin Sf) 200 mg PO Q4H PRN PRN Reason: Cough Heparin Sodium (Porcine) (Heparin) 5,000 units SC BID [facility] Last Admin: 05/22/17 08:23 Dose: 5,000 units Hydralazine HCl (Apresoline) 10 mg SLOW IVP Q4H PRN PRN Reason: Systolic BP > 180 Hydrocortisone/Aloe (Hydrocortisone 1% Cream) 0 gm TOP PRN PRN PRN Reason: DIRECTED Last Admin: 05/22/17 10:23 Dose: 1 applic Hydroxyzine HCl (Atarax) 25 mg PO Q6H PRN PRN Reason: ANXIETY/ITCHING Last Admin: 05/22/17 12:27 Dose: 25 mg Dextrose/Water (D5w) 1,000 mls @ 0 mls/hr IV .Q0M PRN; As Directed PRN Reason: Hypoglycemia Insulin Human Lispro (Humalog) 0 units SC .MODERATE SLIDING SC PRN PRN Reason: Moderate Correctional Scale Last Admin: 05/22/17 12:27 Dose: 2 unit Insulin Human Lispro (Humalog) 0 units SC .BEDTIME SLIDING SC PRN PRN Reason: Bedtime Correctional Scale Loperamide HCl (Imodium) 2 mg PO PRN PRN PRN Reason: Diarrhea/Loose Stools Loratadine (Claritin) 10 mg PO DAILYPRN PRN PRN Reason: Sinus Symptoms Magnesium Hydroxide (Milk Of Magnesium) 30 ml PO DAILYPRN PRN PRN Reason: Constipation Metolazone (Zaroxolyn) 5 mg PO 0830 [facility] Last Admin: 05/22/17 08:23 Dose: 5 mg Mineral Oil/White Petrolatum (Eucerin Cream) 0 gm TOP BIDPRN PRN PRN Reason: Dry Skin Morphine Sulfate (Morphine Sulfate) 2 mg SLOW IVP Q3H PRN PRN Reason: Pain Last Admin: 05/22/17 06:15 Dose: 2 mg Neomycin/Polymyxin/Bacitracin (Triple Antibiotic) 1 gm TOP NOW PRN PRN Reason: .ITCH Stop: 05/22/17 15:26 Ondansetron HCl (Zofran Odt) 4 mg PO Q6H PRN PRN Reason: Nausea/Vomiting Ondansetron HCl (Zofran) 4 mg IVP Q6H PRN PRN Reason: Nausea/Vomiting Pantoprazole Sodium (Protonix) 40 mg PO DAILY [facility] Last Admin: 05/22/17 08:23 Dose: 40 mg Phenol (Chloraseptic [place] 180 Ml Bot) 0 ml PO PRN PRN PRN Reason: Sore Throat Senna (Senokot) 2 tab PO HSPRN PRN PRN Reason: Constipation Sodium Chloride ([place] Nasal [place] 0.65%) 0 ml EA NARE QIDPRN PRN PRN Reason: Nasal Congestion Sodium Chloride (Flush - Normal Saline) 10 ml IVF Q12HR ASAD Last Admin: 05/22/17 08:23 Dose: Not Given Sodium Chloride (Flush - Normal Saline) 10 ml IVF PRN PRN PRN Reason: Saline Flush
[2017-05-23] MEDS: hydrOXYzine 25 MG TAB PO PRN (03:44)
[2017-05-23] MEDS: Morphine 2 MG/ML SYRINGE SLOW IVP PRN (03:47)
[2017-05-23] MEDS: Furosemide 100 MG/10 ML VIAL SLOW IVP SCH ×2 (05:53→14:27)
[2017-05-23 06:40] LABS: Anion Gap 13 mmol/L (10-20); BUN (Urea Nitrogen) 34 mg/dL (9.8-20.1); Calc. Creatinine Clearance 47 mL/min (70-130); Carbon Dioxide 25 mmol/L (23-31); Chloride 88 mmol/L (98-107); Estimated GFR-MDRD 26; Hematocrit 32.3 % (36.0-47.0); Mean Platelet Volume 7.9 fL (7.4-10.4); Red Blood Cell (RBC) Count 3.45 mill/uL (4.20-5.40); White Blood Cell (WBC) Count 4.4 thou/uL (4.8-10.8)
[2017-05-23 07:54] LABS: Neutrophil 59 % (42-75); Polychromasia SLIGHT = 2-3 cells (100X) (0-2/hpf); Reactive Lymphocytes 1 % (0-10); Target Cells SLIGHT = 2-5 cells (100X) (0-1/hpf)
[2017-05-23] MEDS: Heparin 5,000 UNITS/ML VIAL SC SCH (09:50)
[2017-05-23] MEDS: Metolazone 5 MG TAB PO SCH (09:50)
--- NOTE | 2017-05-23 11:47 | PDOC.PN ---
- Subjective Encounter Start Date: 05/23/17 Encounter Start Time: 07:50 Patient seen and examined. No new complaints. No overnight events - Objective Resuscitation Status: Resuscitation Status DNR:Do Not Resuscitate MAR Reviewed: Yes Vital Signs & Weight: Vital Signs (12 hours) Temp Pulse Resp BP Pulse Ox 05/23/17 08:14 98.1 F 66 20 120/76 93 L 05/23/17 08:00 98.1 F 66 20 Weight Admit Weight 268 lb 15.423 oz Weight 268 lb 15.423 oz I&O: 05/22/17 05/23/17 05/24/17 06:59 06:59 06:59 Intake Total 2600 Output Total 450 4250 Balance -450 -1650 Result Diagrams: 05/23/17 04:14 05/23/17 04:14 Additional Labs: Accuchecks 05/23/17 05/23/17 05/22/17 11:22 04:26 20:42 POC Glucose 180 H 196 H 177 H 05/22/17 16:19 POC Glucose 130 H Phys Exam - Physical Examination Constitutional: NAD HEENT: PERRLA, moist MMs, sclera anicteric Neck: no JVD, supple Respiratory: no wheezing, no rales, no rhonchi Cardiovascular: RRR, no significant murmur, no rub Gastrointestinal: soft, non-tender, no distention, positive bowel sounds Musculoskeletal: pulses present, edema present Neurological: non-focal, normal sensation Psychiatric: normal affect, A&O x 3 Skin: no rash, normal turgor Dx/Plan (1) Acute exacerbation of CHF (congestive heart failure) Code(s): I50.9 - HEART FAILURE, UNSPECIFIED Status: Acute Qualifiers: Congestive heart failure type: systolic Qualified Code(s): I50.23 - Acute on chronic systolic (congestive) heart failure Comment: ef of 15% (2) CKD (chronic kidney disease) stage 4, GFR 15-29 ml/min Code(s): N18.4 - CHRONIC KIDNEY DISEASE, STAGE 4 (SEVERE) Status: Chronic (3) CAD (coronary artery disease) Code(s): I25.10 - ATHSCL HEART DISEASE OF [place] CORONARY ARTERY W/O ANG PCTRS Status: Chronic Qualifiers: Coronary Disease-Associated Artery/Lesion type: [place] artery [place] vs. transplanted heart: [place] heart Associated angina: without angina Qualified Code(s): I25.10 - Atherosclerotic heart disease of [place] coronary artery without angina pectoris (4) DM2 (diabetes mellitus, type 2) Status: Chronic Qualifiers: Diabetes mellitus complication status: with kidney complications Diabetes mellitus complication detail: with chronic kidney disease Diabetes mellitus laborer marine terminal insulin use: with prison use Chronic kidney disease stage: stage 4 (severe) Qualified Code(s): E11.22 - Type 2 diabetes mellitus with diabetic chronic kidney disease; N18.4 - Chronic kidney disease, stage 4 (severe); N18.4 - Chronic kidney disease, stage 4 (severe); N18.4 - Chronic kidney disease, stage 4 (severe); N18.4 - Chronic kidney disease, stage 4 (severe); Z79.4 - buttermaker continuous churn (current) use of insulin; Z79.4 - skilled nursing (current) use of insulin; Z79.4 - buttermaker continuous churn (current) use of insulin; Z79.4 - skilled nursing (current) use of insulin (5) HTN (hypertension) Code(s): I10 - ESSENTIAL (PRIMARY) HYPERTENSION Status: Chronic Qualifiers: Hypertension type: essential hypertension (6) Hyperlipidemia Code(s): E78.5 - HYPERLIPIDEMIA, UNSPECIFIED Status: Chronic Qualifiers: Hyperlipidemia type: unspecified (7) Morbid obesity with BMI of 40.0-44.9, adult Code(s): E66.01 - MORBID (SEVERE) OBESITY DUE TO EXCESS CALORIES; Z68.41 - BODY MASS INDEX (BMI) 40.0-44.9, ADULT Status: Chronic (8) Normocytic anemia Code(s): D64.9 - ANEMIA, UNSPECIFIED Status: Chronic (9) Hyponatremia Code(s): E87.1 - HYPO-OSMOLALITY AND HYPONATREMIA Status: Acute (10) Physical deconditioning Code(s): R53.81 - OTHER MALAISE Status: Chronic - Plan cont current plan of care, plan discussed w/ family, health care social worker * sodium improving * continue diuresis * await placement * medication reviewed as below * symptomatic treatment. Review of Systems - Review of Systems Constitutional: negative: Fever, Chills, Sweats, Weakness, Malaise, Other ENT: negative: Ear Pain, Ear Discharge, Nose Pain, Nose Discharge, Nose Congestion, Mouth Pain, Mouth Swelling, Throat Pain, Throat Swelling, Other Respiratory: negative: Cough, Dry, Shortness of Breath, Hemoptysis, SOB with Excertion, Pleuritic Pain, Sputum, Wheezing Cardiovascular: Edema. negative: Chest Pain, Palpitations, Orthopnea, Paroxysmal Noc. Dyspnea, Light Headedness, Other Gastrointestinal: negative: Nausea, Vomiting, Abdominal Pain, Diarrhea, Constipation, Melena, Hematochezia, Other Genitourinary: negative: Dysuria, Frequency, Incontinence, Hematuria, Retention , Other Musculoskeletal: negative: Neck Pain, Shoulder Pain, Arm Pain, Back Pain, Hand Pain, Leg Pain, Foot Pain, Other Skin: negative: Rash, Lesions, Messi, Bruising, Other - Medications/Allergies Allergies/Adverse Reactions: Allergies Allergy/AdvReac Type Severity Reaction Status Date / Time Penicillins Allergy Unknown Rash Verified 05/19/17 15:35 lactose Allergy Verified 05/19/17 15:35 Medications: Current Medications Acetaminophen (Tylenol) 650 mg PO Q4H PRN PRN Reason: Headache/Fever or Pain Last Admin: 05/20/17 03:23 Dose: 650 mg Al Hydroxide/Mg Hydroxide (Maalox) 30 ml PO Q6H PRN PRN Reason: Heartburn or Indigestion Albuterol/Ipratropium (Duoneb) 3 ml NEB [id number] PRN PRN Reason: SOB &/or Wheezing Artificial Tears (Tears Naturale) 0 drop EA EYE PRN PRN PRN Reason: Dry Eyes Dextrose/Water (Dextrose 50%) 25 gm SLOW IVP PRN PRN PRN Reason: Hypoglycemia Furosemide (Lasix) 60 mg SLOW IVP 0600,1400 [facility] Last Admin: 05/23/17 05:53 Dose: 60 mg Glucagon (Glucagon) 1 mg IM PRN PRN PRN Reason: Hypoglycemia Guaifenesin (Robitussin Sf) 200 mg PO Q4H PRN PRN Reason: Cough Heparin Sodium (Porcine) (Heparin) 5,000 units SC BID [facility] Last Admin: 05/23/17 09:50 Dose: 5,000 units Hydralazine HCl (Apresoline) 10 mg SLOW IVP Q4H PRN PRN Reason: Systolic BP > 180 Hydrocortisone/Aloe (Hydrocortisone 1% Cream) 0 gm TOP PRN PRN PRN Reason: DIRECTED Last Admin: 05/22/17 10:23 Dose: 1 applic Hydroxyzine HCl (Atarax) 25 mg PO Q6H PRN PRN Reason: ANXIETY/ITCHING Last Admin: 05/23/17 03:44 Dose: 25 mg Dextrose/Water (D5w) 1,000 mls @ 0 mls/hr IV .Q0M PRN; As Directed PRN Reason: Hypoglycemia Insulin Human Lispro (Humalog) 0 units SC .MODERATE SLIDING SC PRN PRN Reason: Moderate Correctional Scale Last Admin: 05/22/17 12:27 Dose: 2 unit Insulin Human Lispro (Humalog) 0 units SC .BEDTIME SLIDING SC PRN PRN Reason: Bedtime Correctional Scale Loperamide HCl (Imodium) 2 mg PO PRN PRN PRN Reason: Diarrhea/Loose Stools Loratadine (Claritin) 10 mg PO DAILYPRN PRN PRN Reason: Sinus Symptoms Magnesium Hydroxide (Milk Of Magnesium) 30 ml PO DAILYPRN PRN PRN Reason: Constipation Metolazone (Zaroxolyn) 5 mg PO 0830 [facility] Last Admin: 05/23/17 09:50 Dose: 5 mg Mineral Oil/White Petrolatum (Eucerin Cream) 0 gm TOP BIDPRN PRN PRN Reason: Dry Skin Morphine Sulfate (Morphine Sulfate) 2 mg SLOW IVP Q3H PRN PRN Reason: Pain Last Admin: 05/23/17 03:47 Dose: 2 mg Ondansetron HCl (Zofran Odt) 4 mg PO Q6H PRN PRN Reason: Nausea/Vomiting Ondansetron HCl (Zofran) 4 mg IVP Q6H PRN PRN Reason: Nausea/Vomiting Pantoprazole Sodium (Protonix) 40 mg PO DAILY [facility] Last Admin: 05/23/17 09:50 Dose: 40 mg Phenol (Chloraseptic [place] 180 Ml Bot) 0 ml PO PRN PRN PRN Reason: Sore Throat Senna (Senokot) 2 tab PO HSPRN PRN PRN Reason: Constipation Sodium Chloride ([place] Nasal [place] 0.65%) 0 ml EA NARE QIDPRN PRN PRN Reason: Nasal Congestion Sodium Chloride (Flush - Normal Saline) 10 ml IVF Q12HR [facility] Last Admin: 05/23/17 09:50 Dose: 10 ml Sodium Chloride (Flush - Normal Saline) 10 ml IVF PRN PRN PRN Reason: Saline Flush Last Admin: 05/22/17 14:58 Dose: 10 ml
[2017-05-23] MEDS: HumaLOG 300 UNITS/3 ML VIAL SC PRN (12:29)
[2017-05-23] MEDS: Hydrocortisone 1% Cream 30 GM TUBE TOP PRN (12:30)
[2017-05-23 12:42] VITALS: BP 123/78; TEMP 98.5
--- NOTE | 2017-05-23 13:10 | DIS ---
DATE OF ADMISSION: 05/19/2017 DATE OF DISCHARGE: 05/23/2017 PRIMARY CARE PHYSICIAN: Jessika Clay M.D. DISCHARGE DISPOSITION: longterm unit. PRIMARY DISCHARGE DIAGNOSES: 1. Acute on chronic systolic congestive heart failure exacerbation. 2. Hyponatremia due to problem #1. SECONDARY DISCHARGE DIAGNOSES: Coronary artery disease, chronic systolic heart failure, chronic kid christianne disease stage 4, diabetes type 2, hypertension, dyslipidemia, morbid obesity with body mass inde x 40, normocytic anemia, physical deconditioning. PRIMARY PROCEDURE/OPERATION: None. RADIOLOGICAL INVESTIGATION: CT scan on admission showed findings suggestive of pulmonary vascular c ongestion. Chest x-ray showed cardiomegaly and pulmonary vascular congestion. Tibia and fibula x-r ay was negative for any fracture or dislocation. Femur x-ray negative for any fracture or dislocati on. SIGNIFICANT LABORATORY DATA: WBC 4.4, hemoglobin 10.4, platelets 130, sodium 122, potassium 3.5, BU N 34, creatinine 2.25, and calcium 9.0. DISCHARGE MEDICATIONS: Lasix 80 mg p.o. b.i.d. Zaroxolyn 5 mg p.o. daily, Zofran 4 mg q.6 hourly p. r.n., Protonix 40 mg p.o. daily, Milk of Magnesia 30 mL p.o. daily p.r.n., DuoNeb q.6 hourly p.r.n., Humalog insulin as per sliding scale, Coreg 6.25 mg p.o. b.i.d., Maalox 30 mL p.o. q.6 hourly p.r.n ., Tylenol one tablet q.6 hourly p.r.n. CONTRAINDICATIONS: The patient is not on BEV inhibitor and ARB because of renal failure and contrai ndicated. CODE STATUS: DNR. INPATIENT MARINE ELECTRICIAN: None. ALLERGIES: PENICILLIN, LACTOSE. DISCHARGE PLAN: Post hospital, patient will follow with primary care physician. HOSPITAL COURSE: A 67-year-old female who has underlying chronic systolic heart failure as well as renal insufficiency. [facility], [facility] with home hospice. This patient was not interested in going for any kind of heroic m easures. She was not interested in dialysis as well. This patient was brought to the emergency [facility] because the patient was in hospice and patient's family member was not getting enough help from [facility] and patient's family member overwhelmed with the care, they revoked hospice and brought h er to the emergency room. This patient was having hyponatremia and fluid overload status. She was having significant lower ex tremity edema. While she was in hospice, she was not getting any specific treatment for CHF. At th is time, we admitted this patient to medical floor. The family member wanted to continue DNR status . We treated her with Lasix and Zaroxolyn with significant improvement. Her sodium was also improv ing. This patient has volume overload status and that was improving with diuresis. This patient al so has left lower extremity venous ulcer that requires wound care. At this point, family member wanted to take rest and patient's family member cannot take care of her and that is why with help of business case analyst, we arranged jail home. Once the patient fini shed her skilled days, then the patient's family members are planning to consider hospice. At this point, patient is medically stable for discharge. The patient has approval for skilled nurs ing home. The patient was seen and examined at bedside today. Please see my progress note from karissa rodríguez for further details. Plan of care discussed with the patient's family member. Paperwork for discharge done. Discharge medication reconciliation done. Total time spent on discharge day 31 minutes.
[2017-05-23] MEDS ORDERED: Furosemide 40 MG TAB PO SCH (15:00)
[2017-05-24] MEDS ORDERED: Furosemide 40 MG TAB PO SCH (06:00)
== END 2017-05-23 16:29 | DRG 291 ==
LOC: ERS 10:38 → T4-A 13:43
PROVIDERS: ADMIT Internal Medicine; ATTEND Internal Medicine
DX: I13.0 Hypertensive heart and chronic kidney disease with heart failure and stage 1 through stage 4 chronic kidney disease, or unspecified chronic kidney disease (principal); I50.43 Acute on chronic combined systolic (congestive) and diastolic (congestive) heart failure; D61.818 Other pancytopenia; N18.4 Chronic kidney disease, stage 4 (severe); E11.22 Type 2 diabetes mellitus with diabetic chronic kidney disease; Z95.1 Presence of aortocoronary bypass graft; E87.1 Hypo-osmolality and hyponatremia; Z68.41 Body mass index [BMI] 40.0-44.9, adult; L97.929 Non-pressure chronic ulcer of unspecified part of left lower leg with unspecified severity; Z51.5 Encounter for palliative care; Z66 Do not resuscitate; Z23 Encounter for immunization; E78.5 Hyperlipidemia, unspecified; E66.01 Morbid (severe) obesity due to excess calories; I25.10 Atherosclerotic heart disease of native coronary artery without angina pectoris; D64.9 Anemia, unspecified; Z79.4 Long term (current) use of insulin; I25.2 Old myocardial infarction; I89.0 Lymphedema, not elsewhere classified; I25.5 Ischemic cardiomyopathy
CPT/HCPCS: 36415; 36416; 71010; 71250; 80048; 80053; 80069; 82553; 83735; 84484; 85025; 96374; 96375; A4216; G8978-GP-CM; G8979-GP-CK; J1644; J1940; J2270; J2405